=== PATIENT | female | born 1980 | race Two or more races ===

== ENCOUNTER 2024-11-08 17:17 | Emergency (ER) | payer MEDICAID, SELFPAY ==
[2024-11-08 17:38] VITALS: BP 151/98; PULSE 113; RESP 20; TEMP 37.2; O2SAT 97; BMI 39.4
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
[2024-11-08 21:58] LABS: HCG Qualitative,Urine Negative
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
[2024-11-08] MEDS: KETOROLAC INJ 60 MG/2 ML VIAL 30 MG IM (22:56)
== END 2024-11-08 23:13 | disposition home or self-care (01) ==
PROVIDERS: Nurse Practitioner Family; Emergency Provider Emergency Medicine; PCP Family Medicine
DX: S22.20XA Unspecified fracture of sternum, initial encounter for closed fracture (principal); M89.58 Osteolysis, other site; D36.7 Benign neoplasm of other specified sites; S30.1XXA Contusion of abdominal wall, initial encounter; V43.52XA Car driver injured in collision with other type car in traffic accident, initial encounter; S69.92XA Unspecified injury of left wrist, hand and finger(s), initial encounter
CPT/HCPCS: 70450; 71250; 72125; 73110; 74176; 81025; 96372; 99283; J1885